=== PATIENT | female | born 1980 | race Caucasian/White ===

== ENCOUNTER 2022-10-12 13:07 | Emergency (ER) | payer SELFPAY ==
[2022-10-12] VITALS (17 sets, daily range): BP systolic 115–145; BP diastolic 70–84; PULSE 56–69; RESP 12–25; TEMP 36.4; O2SAT 99–100
--- NOTE | 2022-10-12 13:07 | ECG_ITS ---
Measurements Intervals [place] Rate: 59 P: 56 AL: 168 QRS: 7 QRSD: 82 T: 32 QT: 393 QTc: 390 Interpretive Statements SINUS BRADYCARDIA BASELINE ARTIFACT- I, II, AVR BORDERLINE ECG NO PREVIOUS ECG AVAILABLE FOR COMPARISON Electronically Signed On 10-12-2022 16:49:06 CDT by Josiah Gonzalez D.O.
[2022-10-12 13:39] LABS: Basophils Absolute Auto 0.1 K/mm3 (0.0-0.1); Basophils Percent Auto 0.7 % (0.2-1.2); Eosinophils Absolute Auto 0.2 K/mm3 (0-0.3); Eosinophils Percent Auto 2.2 % (0-4.4); Hematocrit 33.3 % (37.0-47.0); Hemoglobin 10.5 g/dL (12.0-15.0); Immature Granulocyte Absolute 0.02 K/mm3 (0.00-0.031); Immature Granulocyte Percent A 0.3 % (0-0.5); Lymphocytes Absolute Auto 2.56 K/mm3 (0.9-3.2); Lymphocytes Percent Auto 35.7 % (18.3-44.2); Mean Corpuscular HGB Conc 31.5 g/dl (32-36); Mean Corpuscular Hemoglobin 27.1 pg (26-34); Mean Corpuscular Volume 85.8 fl (80-100); Mean Platelet Volume 9.7 fl (7.4-10.4); Monocytes Absolute Auto 0.6 K/mm3 (0.1-0.6); Monocytes Percent Auto 7.8 % (2.6-8.5); Neutrophils Absolute Auto 3.8 K/mm3 (1.3-6.7); Neutrophils Percent Auto 53.3 % (45.5-73.1); Platelet Count Result 375 k/mm3 (150-375); Red Blood Count 3.88 M/mm3 (4.2-5.4); Red Cell Distribution Width 13.6 % (11.5-14.5); White Blood Count 7.2 K/mm3 (4.5-10.0)
[2022-10-12 14:19] LABS: Alanine Aminotransferase 23 U/L (6-35); Albumin Level 4.1 g/dL (3.5-5.1); Alkaline Phosphatase 85 U/L (38-126); Anion Gap 5 mmol/L (8-16); Aspartate Amino Transferase 27 U/L (14-36); Bilirubin,Total 0.6 mg/dL (0.2-1.3); Blood Urea Nitrogen 11 mg/dL (7-17); Calcium 8.2 mg/dL (8.4-10.2); Carbon Dioxide 25 mmol/L (22-30); Chloride 108 mmol/L (98-107); Estimated Glomerular Filt Rate > 60; Glucose 89 mg/dL (65-110); Potassium 3.9 mmol/L (3.4-5.0); Sodium 138 mmol/L (137-145)
[2022-10-12 16:45] LABS: Appearance Urine Cloudy (Clear); Bacteria Urine 4+ /hpf; Bilirubin Urine Negative (Negative); Color Urine Yellow (Yellow); Glucose Urine UA Negative (Negative); Ketones Urine Negative (Negative); Leukocyte Esterase Ur Trace LEU/UL (Negative); Nitrate Urine Positive (Negative); Non Pathogenic Casts 0-2; Protein Urine Negative (Negative); RBC Urine 0-2 /hpf (0-2); Specific Grav Ur 1.015 (1.001-1.035); Squamous Epithelial Cell Urine Occasional /hpf (Few)
--- NOTE | 2022-10-12 16:53 | ED.GENADULT ---
HPI - General Adult General Chief complaint: Syncope Stated complaint: Feeling faint Time Seen by Provider: 10/12/22 15:48 History of Present Illness HPI narrative: Patient is a 42-year-old female who presents ER from her place of employment with feeling lightheaded. She was concerned she might pass out. Reports when she would go from the air conditioned area to the outdoor area should get lightheaded and sees stars. No chest pain or chest pressure. No loss of consciousness. She reports her urine has been more concentrated than usual. No dysuria or urinary frequency or urgency. She has no abdominal discomfort. No additional modifying factors. Related Data Allergies Allergy/AdvReac Type Severity Reaction Status Date / Time No Known Allergies Allergy Verified 07/14/22 16:01 Review of Systems Review of Systems: All systems reviewed & are unremarkable except as noted in HPI and below Constitutional: Constitutional: Denies chills, Denies fatigue and Denies fever(s) ENT: Reports nasal congestion and Denies sore throat Cardiovascular: Cardiovascular: Denies chest pain, Denies rapid heart rate and Denies radiating jaw, neck or arm pain Respiratory: Respiratory: Denies cough and Denies dyspnea Neurologic: Reports dizziness, Denies syncope, Denies headache(s) and Denies focal weakness PMFSH Past Medical History Medical History (Updated 10/12/22 @ 16:59 by Lucho Robertson MD) Healthy female adult Surgical History Surgical History (Updated 10/12/22 @ 16:54 by Lucho Robertson MD) No pertinent past surgical history Exam Narrative: GENERAL: Well-appearing, well-nourished, and in no acute distress. HEAD: Normocephalic, atraumatic. ENT: Mucous membranes moist. NECK: Supple. CHEST: Clear to auscultation. No respiratory distress. HEART: Regular rate and rhythm. Normal peripheral pulses. ABDOMEN: Soft, nontender, nondistended. EXTREMITIES: Normal range of motion. No edema. Ambulates without issue. NEURO: Alert and oriented x3. PSYCH: Normal mood and affect. Course Course Emergency Course: Orthostatics performed in the room and patient had her heart rate stayed in the 60s, her blood pressure went from the mid 120s to low 130s and back down to the mid 120s. She was not symptomatic. Vital Signs Vital signs: Vital Signs Temperature 97.6 F 10/12/22 13:12 Pulse Rate 59 L 10/12/22 13:12 Respiratory Rate 16 10/12/22 13:12 Blood Pressure 115/70 10/12/22 13:12 Pulse Oximetry 100 10/12/22 13:12 Oxygen Delivery Room Air 10/12/22 13:12 Temperature 97.6 F 10/12/22 13:12 Pulse Rate 59 L 10/12/22 13:12 Respiratory Rate 16 10/12/22 13:12 Blood Pressure 115/70 10/12/22 13:12 Pulse Oximetry 100 10/12/22 13:12 Oxygen Delivery Room Air 10/12/22 13:12 Medical Decision Making MDM Narrative Medical decision making narrative: -Presentation: 42-year-old female presenting ER with dizziness. -DDX includes but is not limited to: Dehydration, UTI, renal failure. -Co-morbidities complicating care: None -Social determinants of health: Employed in an [employer] -External Chart Review: None -Hx from independent Sources: Patient -Independent interpretation of studies: Normal CMP and CBC. Urinalysis with mild UTI. -Discussion of Management/Consultants: none -Dx tests considered but not ordered: none -Procedures: none -Interventions: none -Shared decision making / Disposition: Patient resting comfortably, hydrated. Discharge home. -RX: Cephalexin 500 mg twice daily x5 days. Vital Signs Vital Signs: Vital Signs Temperature 97.6 F 10/12/22 13:12 Pulse Rate 59 L 10/12/22 13:12 Respiratory Rate 16 10/12/22 13:12 Blood Pressure 115/70 10/12/22 13:12 Pulse Oximetry 100 10/12/22 13:12 Oxygen Delivery Room Air 10/12/22 13:12 Temperature 97.6 F 10/12/22 13:12 Pulse Rate 59 L 10/12/22 13:12 Respiratory Rate 16 10/12/22 13:12
[2022-10-12 16:54] LABS: Add Urine Microscopic? YES
[2022-10-12] MEDS: SODIUM CHLORIDE 0.9% IV 1,000 ML 999 ML IV CONT (17:01)
== END 2022-10-12 17:29 | disposition home or self-care (01) ==
PROVIDERS: Emergency Provider Emergency Medicine
DX: N39.0 Urinary tract infection, site not specified (principal); R00.1 Bradycardia, unspecified
CPT/HCPCS: 36415; 80053; 81001; 81025; 85025; 87077; 87086; 87088; 87186; 93005; 99284; J7030

== ENCOUNTER 2023-02-12 16:50 | Emergency (ER) | payer SELFPAY ==
--- NOTE | ~2023-02-12 | US_ITS ---
EXAMINATION: US pelvic complete w TV DATE: 02/12/2023 18:51 INDICATION: Right lower quadrant abdominal pain. TECHNIQUE: Multiple transabdominal and transvaginal sonographic images of the pelvis were obtained. COMPARISON: None. FINDINGS: TRANSABDOMINAL ULTRASOUND: The uterus measures 8.6 x 5.3 x 6.1 cm. There is no free fluid in the pelvis. TRANSVAGINAL ULTRASOUND: The endometrial complex measures 4 mm in thickness. There is a 2.0 cm subserosal uterine fibroid. The re is a 3.6 cm intramural uterine fibroid. The right ovary measures 2.8 x 2.3 x 2.4 cm. The left ovar y measures 3.0 x 1.8 x 2.3 cm. There is normal vascular flow in the ovaries. IMPRESSION: 1. Uterine fibroids. Reviewed, dictated and finalized at location E. ADVISOR IMPRESSION: 1. Uterine fibroids.
--- NOTE | ~2023-02-12 | CT_ITS ---
EXAMINATION: CT abdomen pelvis w con DATE: 02/12/2023 20:11 INDICATION: Right abdominal pain. Diarrhea. TECHNIQUE: Computed tomography (CT) of the abdomen and pelvis was performed with 100 mL Omnipaque 350 intravenous contrast. Automated exposure control and iterative reconstruction technique were employe d. The dose-length product was 567.16 mGy-cm. COMPARISON: None. FINDINGS: The visualized portions of the last bases demonstrate mild atelectasis. No pleural effusion . The heart size is normal. No pericardial effusion. There is a 4 mm cyst in the liver. The gallbladd er, spleen, pancreas, adrenal glands, and kidneys are normal. There are no dilated loops of bowel. Th e appendix is normal. There are no pathologically enlarged lymph nodes. There is no free intraperiton eal fluid. There are fibroids in the uterus measuring up to 2.6 cm. There is wall thickening of the b ladder, consistent with cystitis. There is severe right hip osteoarthritis and moderate left hip oste oarthritis. There is moderate lumbar spondylosis. IMPRESSION: 1. Cystitis. 2. Uterine fibroids. Reviewed, dictated and finalized at location E. T MACHINE OPERATOR
[2023-02-12 17:02] VITALS: BP 137/77; PULSE 63; RESP 17; TEMP 36.5; O2SAT 100
[2023-02-12 17:26] LABS: Basophils Absolute Auto 0.1 K/mm3 (0.0-0.1); Basophils Percent Auto 0.9 % (0.2-1.2); Eosinophils Absolute Auto 0.1 K/mm3 (0-0.3); Eosinophils Percent Auto 1.8 % (0-4.4); Hematocrit 33.6 % (37.0-47.0); Hemoglobin 10.5 g/dL (12.0-15.0); Immature Granulocyte Absolute 0.01 K/mm3 (0.00-0.031); Immature Granulocyte Percent A 0.1 % (0-0.5); Lymphocytes Absolute Auto 2.34 K/mm3 (0.9-3.2); Lymphocytes Percent Auto 34.3 % (18.3-44.2); Mean Corpuscular HGB Conc 31.3 g/dl (32-36); Mean Corpuscular Hemoglobin 27.8 pg (26-34); Mean Corpuscular Volume 88.9 fl (80-100); Mean Platelet Volume 9.5 fl (7.4-10.4); Monocytes Absolute Auto 0.6 K/mm3 (0.1-0.6); Monocytes Percent Auto 8.1 % (2.6-8.5); Neutrophils Absolute Auto 3.8 K/mm3 (1.3-6.7); Neutrophils Percent Auto 54.8 % (45.5-73.1); Platelet Count Result 361 k/mm3 (150-375); Red Blood Count 3.78 M/mm3 (4.2-5.4); White Blood Count 6.8 K/mm3 (4.5-10.0)
[2023-02-12 17:31] LABS: Appearance Urine Cloudy (Clear); Bacteria Urine 4+ /hpf; Bilirubin Urine Negative (Negative); Blood Urine 1+ (Negative); Color Urine Yellow (Yellow); Glucose Urine UA Negative (Negative); Ketones Urine Negative (Negative); Leukocyte Esterase Ur 1+ LEU/UL (Negative); Nitrate Urine Positive (Negative); Non Pathogenic Casts 0-2; Protein Urine Negative (Negative); Squamous Epithelial Cell Urine None seen /hpf (Few); WBC Urine 21-50 /hpf; pH Urine 6.5 (5.0-9.0)
[2023-02-12 17:34] LABS: Add Urine Microscopic? YES
[2023-02-12 17:36] LABS: Alanine Aminotransferase 18 U/L (6-35); Albumin Level 4.2 g/dL (3.5-5.1); Alkaline Phosphatase 78 U/L (38-126); Anion Gap 5 mmol/L (8-16); Aspartate Amino Transferase 24 U/L (14-36); Bilirubin,Total 0.6 mg/dL (0.2-1.3); Blood Urea Nitrogen 10 mg/dL (7-17); Calcium 8.7 mg/dL (8.4-10.2); Carbon Dioxide 29 mmol/L (22-30); Chloride 104 mmol/L (98-107); Estimated CRCL calculation 73 ml/min; Estimated Glomerular Filt Rate 60; Glucose 82 mg/dL (65-110); Lipase 24 U/L (23-300); Potassium 3.7 mmol/L (3.4-5.0); Sodium 138 mmol/L (137-145)
--- NOTE | 2023-02-12 17:52 | ED.ABDPAIN ---
HPI - Abdominal Pain General Chief Complaint: Abdominal Pain Stated Complaint: Abdominal pain, bilateral foot pain Time Seen by Provider: 02/12/23 17:13 Source: patient Mode of arrival: ambulatory Limitations: no limitations History of Present Illness HPI narrative: Patient is a 42-year-old the ED with report of abdominal pain. Patient reports having pain in her right lower abdomen for the last 3 days. States pain is intermittent, occasionally feels as though a burning sensation is across her lower abdomen. She has been taking ibuprofen for the pain which does provide some relief. Patient also reports having multiple episodes of diarrhea over the last 2 days. Denies rectal bleeding or melena. She denies any nausea, vomiting, fevers, dysuria, hematuria, abnormal vaginal bleeding. She does not history of previous ovarian cyst and states she had to have a cyst removed last June. Related Data Allergies Allergy/AdvReac Type Severity Reaction Status Date / Time No Known Allergies Allergy Verified 02/12/23 17:04 Review of Systems Review of Systems: CONSTITUTIONAL: Denies fever, chills, or sweats. CARDIOVASCULAR: Denies chest pain. RESPIRATORY: Denies dyspnea. GASTROINTESTINAL: see HPI. GENITOURINARY: Denies dysuria or hematuria. MUSCULOSKELETAL: Denies back pain, extremity pain, myalgia. All systems reviewed & are unremarkable except as noted in HPI and below PMFSH Past Medical History Medical History Healthy female adult Surgical History Surgical History No pertinent past surgical history Exam Narrative: GENERAL: Well appearing, Obese with BMI of 30.8, non-toxic, in no acute distress. HEAD: Normocephalic, atraumatic. RESPIRATORY: Airway patent, respirations nonlabored. Clear to auscultation bilaterally, no rales, rhonchi, wheezing. CARDIOVASCULAR: Regular rate and rhythm. ABDOMINAL: Soft, mild tenderness in right lower quadrant, right-sided pelvic region. Nondistended. Normoactive BS. MUSCULOSKELETAL: Moves all extremities. No gross deformities. SKIN: Warm, dry, normal color. NEURO: A&O X3. Speech clear. Cranial nerves II-XII grossly intact. Steady gait. No ataxic movements. PSYCHIATRIC: Appropriate mood and affect. Normal interaction. Course Vital Signs Vital signs: Vital Signs Temperature 97.7 F 02/12/23 17:02 Pulse Rate 63 02/12/23 17:02 Respiratory Rate 17 02/12/23 17:02 Blood Pressure 137/77 02/12/23 17:02 Pulse Oximetry 100 02/12/23 17:02 Oxygen Delivery Room Air 02/12/23 17:02 Temperature 97.7 F 02/12/23 17:02 Pulse Rate 60 02/12/23 20:15 Respiratory Rate 18 02/12/23 20:15 Blood Pressure 131/76 02/12/23 20:15 Pulse Oximetry 100 02/12/23 20:15 Oxygen Delivery Room Air 02/12/23 17:02 MDM - Abdominal Pain MDM Narrative Medical decision making narrative: Patient presents the ED with 3 day history of right lower abdominal pain. Associated with diarrhea, no nausea or vomiting. Vital signs stable upon arrival. Patient in no acute distress. She did not want anything for pain. Cbc unremarkable. Mild chronic anemia. CMP unremarkable. UA consistent with infection. Will treat. Pelvic US obtained and showing uterine fibroids. No evidence of ovarian torsion, ovarian cyst. CT abdomen pelvis also obtained and showing findings consistent with cystitis. No other acute intra-abdominal findings. Patient updated on lab and imaging results, Plan for discharge with antibiotics for UTI. Patient in agreement this plan. Given return precautions. Discharged in stable condition. Medical Records Attestation: I reviewed the patient's medical records. Lab Data Attestation: I reviewed the patient's lab results. 02/12/23 17:18 02/12/23 17:18 Labs: Lab Results 02/12/23 02/12/23 Range/Units
[2023-02-12 20:15] VITALS: BP 131/76; PULSE 60; RESP 18; O2SAT 100
[2023-02-12 20:56] VITALS: BP 119/85; PULSE 63; RESP 18; O2SAT 100
== END 2023-02-12 21:30 | disposition home or self-care (01) ==
PROVIDERS: Emergency Medicine; Emergency Provider Physician Assistant; PCP Nurse Practitioner Family
DX: D25.9 Leiomyoma of uterus, unspecified (principal); N30.90 Cystitis, unspecified without hematuria; D64.9 Anemia, unspecified
CPT/HCPCS: 36415; 74177; 76830; 76856; 80053; 81001; 81025; 83690; 85025; 87077; 87086; 87186; 99284; Q9967